=== PATIENT | male | born 1950 | race Caucasian/White ===

== ENCOUNTER 2021-04-07 13:09 | Outpatient (CLI) | payer MEDICARE, SELFPAY ==
[2021-04-07 13:31] VITALS: BP 128/85; PULSE 83; RESP 18; TEMP 36.7; O2SAT 96; BMI 38.0
[2021-04-07 14:10] VITALS: BP 110/72; PULSE 58; RESP 16; TEMP 36.7; O2SAT 96
[2021-04-07 15:10] VITALS: BP 104/74; PULSE 83; RESP 16; TEMP 36.9; O2SAT 96
== END 2021-04-07 13:10 | disposition home or self-care (01) ==
LOC: OPS 13:10
PROVIDERS: PCP Nurse Practitioner; Visit Provider Nurse Practitioner Family
DX: U07.1 COVID-19 (principal)
CPT/HCPCS: 96365